=== PATIENT | male | born 1960 | race Two or more races ===

== ENCOUNTER → 2025-10-18 | Outpatient (CLI) | payer MEDICARE, MEDICAID, SELFPAY ==
--- NOTE | 2025-10-18 10:00 | XR_ITS ---
EXAMINATION: XR video fluoro swallow study HISTORY: Dysphagia, choking, globus sensation in the setting of prior cerebrovascular accident. History of right-sided neurologic deficits. COMPARISON: None TECHNIQUE: Lateral shank breaker radiograph of the neck and frontal radiograph of the chest were followed by multiple fluoroscopic images during and after the uneventful administration of different barium consistencies in conjunction with speech pathology. FLUOROSCOPY TIME: 0.9 min RADIATION: 161.10 mGy IMAGES: 189 FINDINGS: Lateral radiograph of the neck demonstrates small to moderate disc osteophyte complexes at C4-C5 and C6-C7. C7 and C7-T1 are incompletely visualized. No prevertebral soft tissue swelling. Gastrostomy tube is present. No pneumothorax or pleural effusion. Cardiac silhouette normal in size. No consolidation. Cholecystectomy clips. Thin by spoon: Good swallow Thin by cup: Delayed swallow, residual, flash penetration, pooling in the valleculae, no aspiration Grill: Delayed swallow, flash penetration Pudding: Good swallow Cracker: Residual Thin by straw (AP view):Nondistention of the right piriform sinus or vallecula IMPRESSION: 1. Episodes of delayed swallow, residual, flash penetration, and pooling without patricia aspiration as above. 2. Nondistention of the right piriform sinus and vallecula in the setting of right-sided neurologic deficits status post cerebrovascular accident. Discussed with speech pathology during and after procedure.
== END | disposition home or self-care (01) ==
PROVIDERS: PCP Family Medicine; Referring Provider Family Medicine; Visit Provider Family Medicine
DX: R13.10 Dysphagia, unspecified (principal); I63.9 Cerebral infarction, unspecified
CPT/HCPCS: 74230; A9270